=== PATIENT | female | born 1985 | race Caucasian/White ===

== ENCOUNTER 2024-08-12 10:10 | Emergency (ER) | payer BC ==
[~2024-08-12] VITALS: Ht 175.3 cm; Wt 70.8 kg
[2024-08-12 10:33] VITALS: BP_SYST 152; PULSE 71; RESP 22; TEMP 98.3; O2SAT 98
[2024-08-12 13:44] LABS: BASOPHILS # (AUTO) 0.1 K/uL (0.0-0.2); BASOPHILS % (AUTO) 0.7 % (0.0-2.0); EOSINOPHILS % (AUTO) 0.4 % (0.0-4.0); HEMATOCRIT 45.4 % (36-48); HEMOGLOBIN 14.8 g/dL (12.0-16.0); LYMPHOCYTES # (AUTO) 3.1 K/uL (1.0-5.5); LYMPHOCYTES % (AUTO) 27.2 % (20.5-51.5); MEAN CORPUSCULAR HEMOGLOBIN 27 pg (27-31); MEAN CORPUSCULAR HGB CONC 33 % (32-36); MEAN CORPUSCULAR VOLUME 83 fL (79.0-98.0); MONOCYTES # (AUTO) 0.7 K/uL (0.0-1.0); MONOCYTES % (AUTO) 6.2 % (1.7-9.3); NEUTROPHILS # (AUTO) 7.5 K/uL (1.8-7.7); NEUTROPHILS % (AUTO) 65.5 % (40.0-70.0); PLATELET COUNT (AUTO) 199 K/uL (130-430); RED CELL DISTRIBUTION WIDTH 13.9 % (9.0-15.0); WHITE BLOOD COUNT (AUTO) 11.5 K/uL (4.8-10.8)
[2024-08-12 13:47] LABS: ERYTHROCYTE SEDIMENTATION RATE 6 MM/HR (0-20)
[2024-08-12 14:04] VITALS: BP_SYST 132; PULSE 85; RESP 18; TEMP 98.3; O2SAT 98
[2024-08-12 14:12] LABS: CALCIUM 9.4 mg/dL (8.4-11.0); CREATININE 0.68 mg/dL (0.55-1.30); POTASSIUM 4.4 mmol/L (3.5-5.1); THYROID STIMULATING HORMONE 0.98 uIu/mL (0.34-4.82)
== END 2024-08-12 14:04 | disposition home or self-care (01) ==
LOC: SED 10:10
DX: G89.29 Other chronic pain (principal); R07.0 Pain in throat; M54.2 Cervicalgia
CPT/HCPCS: 36415; 70490; 80048; 83605; 84443; 85025; 85651; 99284